=== PATIENT | male | born 1955 | race Caucasian/White ===

== ENCOUNTER → 2017-01-03 | Outpatient (CLI) | payer OTHER ==
[~2017-01-03] MED LIST: MELO-195 PO; NITRO SL; SMV20T PO; VALA500T17 PO
--- NOTE | 2017-01-03 11:42 | Diagnostic Imaging Report ---
PROCEDURE: MR imaging of the brain without contrast. TECHNIQUE: Multiplanar, multisequence MR imaging of the brain was performed without contrast. INDICATION: Confusion, history of a mass. COMPARISON: No prior studies are available for comparison. FINDINGS: There is no diffusion restriction to suggest an acute infarct or other diffusion abnormality. There is a relatively prominent periventricular, callosal and pericallosal white matter T2 hyperintense lesions seen on FLAIR and T2-weighted images. One of the lesions in the posterior periventricular white matter demonstrates prominent T1 hypointense components which is often seen with chronic white matter lesions. The pattern is compatible with the provided history of multiple sclerosis. There is minimal T2 hyperintense signal seen in the posterior aspect of mara and along the left and right middle cerebellar peduncles. There is no significant mass effect seen. There is no hydrocephalus. The pituitary gland is normal in size. No hypothalamic or pineal region mass. The central vascular flow-voids appear grossly unremarkable. IMPRESSION: White matter lesions mainly in periventricular location and few infratentorial lesions, compatible with the provided history of multiple sclerosis. Dictated by: Dictated on workstation # [id number]
== END ==
LOC: RAD 09:08
PROVIDERS: ATTEND Family Medicine
DX: G35 Multiple sclerosis (principal); R41.0 Disorientation, unspecified
CPT/HCPCS: 70551

== ENCOUNTER 2017-01-26 05:39 | Outpatient (CLI) | payer OTHER ==
[~2017-01-26] VITALS: Ht 170.2 cm; Wt 76.2 kg
[2017-01-26] MEDS ORDERED: ESCI20TA45 PO (11:21)
[2017-01-26] MEDS ORDERED: MULT-301 PO (11:21)
[2017-01-26] MEDS ORDERED: FISH1CAP15 PO (11:21)
[2017-01-26] MEDS ORDERED: ENAL20TA PO (11:21)
[2017-01-26] MEDS ORDERED: SIMV40TA4 PO (11:21)
== END 2017-01-26 11:28 ==
LOC: PREOP 05:39
PROVIDERS: ATTEND Surgery
DX: Z01.818 Encounter for other preprocedural examination (principal); Z12.11 Encounter for screening for malignant neoplasm of colon

== ENCOUNTER 2017-01-31 06:43 | Day surgery (SDC) | payer OTHER ==
[~2017-01-31] VITALS: Ht 170.2 cm; Wt 76.2 kg
[~2017-01-31 06:43] MED LIST changes: +ENAL20TA PO; +ESCI20TA45 PO; +FISH1CAP15 PO; +MULT-301 PO; +SIMV40TA4 PO
[2017-01-31] MEDS ORDERED: NS IV 500 ML 500 ML ONE (07:04)
[2017-01-31 07:22] VITALS: BP 166/94
[2017-01-31] MEDS ORDERED: MIDAZOLAM 2 MG/2 ML (VERSED) VIAL ONE ×3 (07:28)
[2017-01-31] MEDS ORDERED: fentaNYL INJECTION 100 MCG/2 ML AMP ONE (07:29)
[2017-01-31] MEDS ORDERED: NS IV 500 ML 500 ML IV SCH (07:30)
[2017-01-31] MEDS: fentaNYL INJECTION 100 MCG/2 ML AMP IVP PRN ×2 (07:57→08:08)
--- NOTE | 2017-01-31 07:59 | Conscious Sedation/ASA ---
Conscious Sedation Pre-Proced Time Reviewed: 07:59 ASA Class: 2 Airway Mallampati Classification: ([place] appropriate class) I. II. III, IV Lungs Heart ASA score ASA 1: a normal healthy patient ASA 2: a patient with a mild systemic disease (mid diabetes, controlled hypertension, obesity ASA 3: a patient with a severe systemic disease that limits activity (angina , COPD, prior Myocardial infarction) ASA 4: a patient with an incapacitating disease that is a constant threat to life (CHF, renal failure) ASA 5: a moribund patient not expected to survive 24 hrs. (ruptured aneurysm) ASA 6: a declared brain patient whose organs are being harvested. For emergent operations, add the letter E after the classification Grade 1 Sedation Plan: Discussed options with patient/fam Note The patient is an appropriate candidate to undergo the planned procedure, sedation, and anesthesia. The patient immediately re-assessed prior to indication. EMERSON LENNON MD Jan 31, 2017 7:59 am
--- NOTE | 2017-01-31 07:59 | History & Physicial ---
History of Present Illness History of Present Illness Reason for visit/HPI To undergo screening colonoscopy. Denies any family history of colon cancer or polyps. Date of Admission Date Seen by Provider: Jan 31, 2017 Time Seen by Provider: 07:57 I consulted on this patient on 01/31/17 07:57 Attending Physician Emerson Lennon MD Admitting Physician Chago Dudley MD Consult Allergies and Home Medications Allergies Coded Allergies: No Known Drug Allergies (Unverified , 01/26/17) Home Medications Enalapril Maleate 20 Mg Tablet, 20 MG PO DAILY, (Reported) Escitalopram Oxalate 20 Mg Tablet, 20 MG PO DAILY, (Reported) Fish Oil/Dha/Epa 1 Each Capsule, 1 EACH PO DAILY, (Reported) Multivitamin 1 Each Tablet, 1 EACH PO DAILY, (Reported) Simvastatin 40 Mg Tablet, 40 MG PO DAILY, (Reported) Past [id number] Hx Patient Social History Marrital Status: Employed/Student: retired Alcohol Use: Denies Use Recreational Drug Use: No Smoking Status: Never a Smoker Recent Foreign Travel: No Contact w/other who traveled: No Recent Hopitalizations: No Immunizations Up To Date Date of Pneumonia Vaccine: Apr 08, 2014 Date of Influenza Vaccine: Apr 12, 2016 Seasonal Allergies Seasonal Allergies: No Surgeries HX Surgeries: Yes (GANGLION CYST X2 L WRIST, CERVICAL SPINE, R SHOULDER ROTATOR CUFF) Surgeries: Appendectomy Respiratory Hx Respiratory Disorders: No Cardiovascular Hx Cardiovascular Disorders: Yes (HX "SKIPPING BEATS") Cardiac Disorders: High Cholesterol, Hypertension Neurological Hx Neurological Disorders: Yes Neurological Disorders: Multiple Sclerosis Reproductive System Hx Reproductive Disorders: No Sexually Transmitted Disease: No HIV/AIDS: No Genitourinary Hx Genitourinary Disorders: Yes Genitourinary Disorders: Kidney Stones Gastrointestinal Hx Gastrointestinal Disorders: No Musculoskeletal Hx Musculoskeletal Disorders: Yes (SPINAL STENOSIS) Musculoskeletal Disorders: Chronic Back Pain Endocrine Hx Endocrine Disorders: No HEENT HX ENT Disorders: Yes (GLASSES) Loss of Vision: Bilateral Hearing Impairment: Denies Cancer Hx Cancer: No Psychosocial Hx Psychiatric Problems: Yes Behavioral Health Disorders: Anxiety, Depression Integumentary HX Skin/Integumentary Disorder: No Blood Transfusions Hx Blood Disorders: No Adverse Reaction to a Blood Tr: No (N/A) Constitutional: no symptoms reported EENTM: no symptoms reported Respiratory: no symptoms reported Cardiovascular: no symptoms reported Gastrointestinal: no symptoms reported Genitourinary: no symptoms reported Musculoskeletal: no symptoms reported Skin: no symptoms reported Psychiatric/Neurological: No Symptoms Reported Physical Exam Vital Signs Vital Sign - Last 12Hours 01/31/17 07:22 Temp 97.3 Pulse 64 Resp 18 B/P (MAP) 166/94 Pulse Ox 98 O2 Delivery Room Air Capillary Refill : General Appearance: No Apparent Distress HEENT: Normal ENT Inspection Neck: Normal Inspection Respiratory: Chest Non Tender Gastrointestinal: Non Tender, Soft Rectal: Deferred Extremity: Normal Inspection Neurologic/Psychiatric: Alert, Oriented x3 Skin: Warm/Dry Assessment/Plan Assessment and Plan Gentleman here to undergo screening colonoscopy. Details of the procedure, differential diagnosis of diverticulosis polyps etc. discussed. Iatrogenic perforation and post polypectomy bleeding reviewed. Willing to proceed. Problems: EMERSON LENNON MD Jan 31, 2017 7:59 am
[2017-01-31] MEDS: MIDAZOLAM 2 MG/2 ML (VERSED) VIAL IVP PRN ×3 (08:00→08:10)
--- NOTE | 2017-01-31 08:24 | Endo Procedure Record ---
Endo Procedure Report Date of Procedure Jan 31, 2017 Surgeon (s) EMERSON LENNON MD Post Procedure/Op Diagnosis sigmoid diverticulosis Procedure Performed colonoscopy to cecum Description of Procedure Anesthesia Type: Conscious Sedation Specimen(s) collected/removed none Description of the Procedure Indication for procedure:This gentleman came in for screening colonoscopy. He denied any family history of colon cancer or polyps. Informed consent was obtained after reviewing the procedure in detail Description of the procedure: He was placed in left lateral decub disposition and his vital signs were monitored. Conscious sedation was achieved using Versed and fentanyl. Digital rectal examination was unremarkable. The colonoscope was then introduced into the rectum and advanced all the way up to the cecum. The scope was then withdrawn slowly and the mucosa examined in a systematic fashion. Finding:Very few sigmoid diverticula. No polyps were found. He tolerated the procedure well and was taken back to the nursing area in a stable condition. Impression: Screening colonoscopy. No polyps. No family history. Recommend repeating in 10 years. Copies To: NED DELEON MD, XAVIER M MD Jan 31, 2017 8:24 am
--- NOTE | 2017-01-31 08:26 | Discharge Inst-Simple/Standard ---
Discharge Inst-Standard Discharge Medications New, Converted or Re-Newed RX: Other Patient Instructions/Follow Up Plan of Care/Instructions/FU: repeat colonoscopy in 10 years Activity as Tolerated: Yes Discharge Diet: No Restrictions EMERSON LENNON MD Jan 31, 2017 8:25 am
[2017-01-31 08:30] VITALS: BP 103/63
[2017-01-31 09:00] VITALS: BP 137/86
== END 2017-01-31 09:25 | disposition home or self-care (01) ==
LOC: ENDO 06:43
PROVIDERS: ATTEND Surgery
DX: Z12.11 Encounter for screening for malignant neoplasm of colon (principal); K57.30 Diverticulosis of large intestine without perforation or abscess without bleeding; E78.00 Pure hypercholesterolemia, unspecified; I10 Essential (primary) hypertension; Z87.442 Personal history of urinary calculi; F41.9 Anxiety disorder, unspecified; F32.9 Major depressive disorder, single episode, unspecified

== ENCOUNTER → 2017-12-07 | Outpatient (CLI) | payer OTHER ==
--- NOTE | 2017-12-07 12:42 | Diagnostic Imaging Report ---
Low-dose lung cancer screening exam. Indication: A 34 year pack smoking history. Routine images of the thorax were obtained using a low-dose lung cancer screening protocol. There are no prior studies available for comparison. There is no parenchymal lung mass identified. The lungs are generally clear and well aerated. There is no sign of failure, pneumonia or pleural effusion. The heart size is within normal limits. There are coronary artery calcifications evident. The aorta is not abnormally dilated. There is no obvious mediastinal or hilar adenopathy. The thyroid gland was not well visualized. The sections through the upper abdomen fail to show any sign of acute abnormality. The bone windows are unremarkable for fracture or for destructive lesion. Impression: 1. There is no evidence for a pulmonary nodule. A followup low-dose lung cancer screening exam in one year would be recommended for further study. 2. There is no acute cardiopulmonary abnormality identified. 3. There is coronary artery disease. Lung-RADS category 1 Dictated by: Dictated on workstation # [id number]
== END ==
LOC: RAD 09:41
PROVIDERS: ATTEND Family Medicine
DX: Z12.2 Encounter for screening for malignant neoplasm of respiratory organs (principal); I25.10 Atherosclerotic heart disease of native coronary artery without angina pectoris; F17.210 Nicotine dependence, cigarettes, uncomplicated

== ENCOUNTER → 2022-05-26 | Outpatient (CLI) | payer OTHER ==
[~2022-05-26] MED LIST changes: -ENAL20TA PO; +ENAL20TA16 PO; +ESCI20TA39 PO; -ESCI20TA45 PO; +SIMV40TA25 PO; -SIMV40TA4 PO
--- NOTE | 2022-05-26 13:37 | Diagnostic Imaging Report ---
PROCEDURE: CT abdomen and pelvis without contrast. TECHNIQUE: Multiple contiguous axial images were obtained through the abdomen and pelvis without the use of intravenous contrast. Auto Exposure Controls were utilized during the CT exam to meet ALARA standards for radiation dose reduction. INDICATION: Lower abdominal pain for 3 months. No prior studies are available for comparison. The lung bases are clear. There is a small circumscribed low-attenuation lesion in the dome of liver measuring 8 mm. This is too small to characterize but may represent a cyst. There are multiple small stones within the gallbladder. No biliary ductal dilatation is seen. The pancreas and spleen are unremarkable. No adrenal mass is identified. Kidneys are unremarkable. No calculi are detected. There is no hydronephrosis. Aorta is borderline aneurysmal measuring 3.1 cm AP diameter. Aorta and iliac vessels are heavily calcified. Bowel loops are normal caliber. No obstruction. There is diverticulosis of the sigmoid and descending colon but no evidence of acute diverticulitis. No free fluid or fluid collection is seen. The bladder and prostate are unremarkable. There is a fat-containing left inguinal hernia. Bony structures are nonacute. IMPRESSION: 1. Cholelithiasis. 2. Uncomplicated diverticulosis. 3. Fat-containing left inguinal hernia. 4. Mild aneurysmal dilatation of the abdominal aorta. Dictated by: Dictated on workstation # [id number]
== END ==
LOC: RAD 12:35
PROVIDERS: ATTEND Family Medicine
DX: K80.20 Calculus of gallbladder without cholecystitis without obstruction (principal); K57.30 Diverticulosis of large intestine without perforation or abscess without bleeding; K40.90 Unilateral inguinal hernia, without obstruction or gangrene, not specified as recurrent; I71.40 Abdominal aortic aneurysm, without rupture, unspecified; Z98.890 Other specified postprocedural states
CPT/HCPCS: 74176